=== PATIENT | female | born 1980 | race Caucasian/White ===

== ENCOUNTER → 2016-08-26 | Outpatient (CLI) | payer BC | LOC: KOH-I 13:43 | DX: M25.552 Pain in left hip (principal) | CPT/HCPCS: 72202; 73502 ==

== ENCOUNTER 2020-09-01 21:44 | Emergency (ER) | payer OTHER ==
[~2020-09-01 21:44] MED LIST: AMITIZA8 MCG PO; ARMOUR THYROID15 MG PO; AUGMENTIN 875-1 EACH PO; AUGMENTIN PO; CLARITIN10 M2 PO; CLINDAMYCIN HC300 MG PO; LODINE CAP 300300 MG PO; MIRALAX17 GM PO; NORCO 7.5-3251 EACH PO; ZEPHREX-D30 MG PO; ZOFRAN8 MG SL
== END 2020-09-01 23:47 | disposition left against medical advice (07) ==
LOC: ER1 21:44
DX: Z53.21 Procedure and treatment not carried out due to patient leaving prior to being seen by health care provider (principal)

== ENCOUNTER 2020-09-05 11:57 | Emergency (ER) | payer OTHER ==
[2020-09-05 12:40] LABS: HEMOGLOBIN 14.5 gm/dl (12.3-15.3); RED BLOOD COUNT 4.73 M/UL (4.00-5.10); WHITE BLOOD COUNT 15.8 K/UL (4.5-11.0)
[2020-09-05 13:16] LABS: BUN/CREATININE RATIO 17 (0-10)
[2020-09-05] MEDS ORDERED: ZOFRAN ODT 4 MG4 MG PO (15:01)
[2020-09-05] MEDS ORDERED: BENTYL 20MG TAB20 MG PO (15:01)
== END 2020-09-05 16:00 | disposition home or self-care (01) ==
LOC: ER1 11:57
DX: R11.2 Nausea with vomiting, unspecified (principal); R10.811 Right upper quadrant abdominal tenderness; R10.813 Right lower quadrant abdominal tenderness; E78.5 Hyperlipidemia, unspecified; F17.210 Nicotine dependence, cigarettes, uncomplicated; Z88.6 Allergy status to analgesic agent; Z88.2 Allergy status to sulfonamides
CPT/HCPCS: 80053; 81001; 83690; 84703; 85025; 87086; 96374; 96375; 96376; 99284; J1885; J2405; Q9967

== ENCOUNTER 2021-12-17 08:06 | Emergency (ER) | payer BC ==
[~2021-12-17 08:06] MED LIST changes: +BENTYL 20MG TAB20 MG PO; +CYCLOBENZAPRINE10 MG PO; +IBUPROFEN600 MG PO; +ZOFRAN ODT 4 MG4 MG PO
[2021-12-17 08:58] LABS: HEMOGLOBIN 15.5 gm/dl (12.3-15.3); RED BLOOD COUNT 4.98 M/UL (4.00-5.10); WHITE BLOOD COUNT 11.2 K/UL (4.5-11.0)
[2021-12-17 09:26] LABS: BUN/CREATININE RATIO 17 (0-10)
[2021-12-17] MEDS ORDERED: IBUPROFEN800 MG PO (12:20)
[2021-12-17] MEDS ORDERED: ROBAXIN 750 MG750 MG PO (12:20)
== END 2021-12-17 12:33 | disposition home or self-care (01) ==
LOC: ER1 08:06
PROVIDERS: Physician Assistant
DX: S16.1XXA Strain of muscle, fascia and tendon at neck level, initial encounter (principal); R51.9 Headache, unspecified; M50.322 Other cervical disc degeneration at C5-C6 level; E04.1 Nontoxic single thyroid nodule; R03.0 Elevated blood-pressure reading, without diagnosis of hypertension; F17.200 Nicotine dependence, unspecified, uncomplicated; Z88.2 Allergy status to sulfonamides; Z88.6 Allergy status to analgesic agent; X58.XXXA Exposure to other specified factors, initial encounter
CPT/HCPCS: 70450; 72125; 80053; 84703; 85025; 96374; 96375; 99284; J1200; J1885; J2765